=== PATIENT | female | born 1965 | race Hispanic/Latino ===

== ENCOUNTER 2019-01-20 18:24 | Emergency (ER) | payer BC ==
[~2019-01-20] VITALS: Ht 162.6 cm; Wt 116.1 kg
[2019-01-20] MEDS ORDERED: PANTOPRAZOLE 40 MG 10ML VIAL IV NR (19:41)
[2019-01-20] MEDS ORDERED: SODIUM CHLORIDE 0.9% 1000ML 1,000 ML IV STA (19:41)
[2019-01-20] MEDS ORDERED: LIDOCAINE VISC 2% SOLN 15 ML UDC PO NR (19:45)
[2019-01-20] MEDS ORDERED: BELLADONNA ALK/PHENOBARBITAL 5 ML UDC PO NR (19:45)
[2019-01-20] MEDS ORDERED: MAGNESIUM/ALUMINUM/SIMETHICONE 30 ML UDC PO NR (19:45)
[2019-01-20 20:36] LABS: BASOPHILS % 0.1 % (0.0-1.0); EOSINOPHILS % 0.4 % (0.0-6.0); HEMATOCRIT 42.5 % (34.2-44.1); LYMPHOCYTES # (AUTO) 0.8 (1.0-3.2); LYMPHOCYTES % 8.8 % (18.0-39.1); MEAN CORPUSCULAR HEMOGLOBIN 28.2 pg (28-32); MEAN CORPUSCULAR HGB CONC 32.9 g/dL (31-35); MEAN CORPUSCULAR VOLUME 85.5 fL (81-99); MONOCYTES # (AUTO) 0.3 (0.2-0.8); MONOCYTES % 3.8 % (4.4-11.3); NEUTROPHILS # (AUTO) 7.8 (2.1-6.9); NEUTROPHILS % 86.7 % (38.7-80.0); PLATELET COUNT 262 x10e3/uL (140-360); RED BLOOD COUNT 4.97 x10e6/uL (3.6-5.1); RED CELL DISTRIBUTION WIDTH 13.4 % (11.7-14.4)
[2019-01-20 21:12] LABS: ALANINE AMINOTRANSFERASE 24 IU/L (0-55); ALBUMIN 3.7 g/dL (3.5-5.0); ALBUMIN/GLOBULIN RATIO 1.1 (0.8-2.0); ALKALINE PHOSPHATASE 84 IU/L (40-150); AMYLASE 35 U/L (25-125); ANION GAP 11.7 mmol/L (8-16); BLOOD UREA NITROGEN 13 mg/dL (7-26); BUN/CREATININE RATIO 18 (6-25); CALCIUM 8.8 mg/dL (8.4-10.2); CARBON DIOXIDE 25 mmol/L (22-29); CHLORIDE 102 mmol/L (98-107); CREATININE, SERUM 0.72 mg/dL (0.57-1.11); EST GLOMERULAR FILTRATION RATE > 60 ML/MIN (60-); GLUCOSE 101 mg/dL (74-118); LIPASE 10 U/L (8-78); POTASSIUM 3.7 mmol/L (3.5-5.1); SODIUM 135 mmol/L (136-145)
[2019-01-20] MEDS ORDERED: KETOROLAC TROMETHAMINE 30 MG/ML VIAL IV NR (21:30)
[2019-01-20] MEDS ORDERED: SODIUM CHLORIDE 0.9% 50ML 50 ML ONE (22:15)
[2019-01-20] MEDS ORDERED: IOPAMIDOL 370 MG/ML 200 ML INFUS..BTL INJ ONE (22:16)
--- NOTE | 2019-01-20 22:49 | Diagnostic Imaging Report ---
CT Abdomen And Pelvis with Intravenous Contrast INDICATION: Nausea, vomiting ^UPPER ABD PAIN ^[id number] ^[id number] TECHNIQUE: Thin collimation axial images obtained from the diaphragm to the level of the pubic symphysis following the uneventful administration of 100 cc of low osmolar, nonionic intravenous contrast. Dose reduction techniques used: Automated exposure control, adjustment of the mAs and/or kVp according to patient size, standardized low-dose protocol, and/or iterative reconstruction technique. RADIATION DOSE: Total DLP: 876.01 mGy*cm Estimated effective dose: (DLP x 0.015 x size factor) mSv CTDIvol has been reviewed. It is below the limits set by the Radiation Protocol Committee (RPC). COMPARISON: None. ABDOMEN FINDINGS: Lung Bases: Subsegmental atelectasis in the left lower lobe. Visualized portion of the mediastinum is normal. Liver: Steatosis. No evidence for mass. Gallbladder: Present and appears normal. No biliary ductal dilatation. Pancreas: Mild fatty atrophy. Focal low attenuating lesion in the proximal tail measures 4 mm. No ductal dilatation. Spleen: Normal in size. No evidence of mass.. Adrenal Glands: No evidence for mass. Kidneys: Right: Normal enhancement. No soft tissue mass. No hydronephrosis. Left: Normal enhancement. No soft tissue mass. No hydronephrosis. Lymph Nodes: No enlarged abdominal or retroperitoneal lymph nodes. Aorta: Normal in diameter PELVIS FINDINGS: Bowel: Stomach: Normal. Small Bowel: Normal in caliber with normal wall thickness. Large Bowel: Normal in caliber with normal wall thickness. Appendix: Normal appendix. Bladder: Normal. Uterus is present and normal in morphology. No adnexal mass. Peritoneum/retroperitoneum: No free fluid or fluid collection Bones: Unremarkable for age. Mild degenerative changes of the lower thoracic and mid lumbar spine. Soft tissues: Unremarkable. IMPRESSION: 1. Steatosis. 2. Normal CT appearance of the gallbladder. Normal biliary tree. 3. Low attenuating lesion in the pancreas tail may represent focal fat or a cyst. Recommend further evaluation with MRI of the pancreas on an outpatient basis. 4. No evidence for bowel obstruction or inflammation. Normal appendix. Signed by: Dr. Isaiah Lincoln MD on 01/20/2019 10:46 PM
[2019-01-20 23:52] VITALS: BP 119/65
== END 2019-01-21 | disposition home or self-care (01) ==
LOC: ER 18:24
DX: R10.13 Epigastric pain (principal); R11.0 Nausea; K29.00 Acute gastritis without bleeding; I10 Essential (primary) hypertension
CPT/HCPCS: 36415; 74177; 80053; 82150; 83690; 85025; 99284; C9113; J1885; J7030; Q9967